=== PATIENT | female | born 1995 | race Hispanic/Latino ===

== ENCOUNTER → 2018-08-21 | Outpatient (CLI) | payer BC | END | disposition home or self-care (01) | LOC: RAH 13:11 | PROVIDERS: ATTEND Family Medicine | DX: R22.1 Localized swelling, mass and lump, neck (principal) | CPT/HCPCS: 76536 ==

== ENCOUNTER → 2019-10-08 | Outpatient (CLI) | payer BC | END | disposition home or self-care (01) | LOC: RAH 08:19 | PROVIDERS: ATTEND Family Medicine | DX: K76.0 Fatty (change of) liver, not elsewhere classified (principal); R11.2 Nausea with vomiting, unspecified | CPT/HCPCS: 76700 ==

== ENCOUNTER 2020-10-18 03:24 | Emergency (ER) | payer BC ==
[~2020-10-18] VITALS: Ht 165.1 cm; Wt 77.1 kg
[2020-10-18 03:45] VITALS: BP 123/91
[2020-10-18 04:10] VITALS: BP 123/80
[2020-10-18] MEDS ORDERED: SOLU-MEDROL 125MG VIAL IM ONE (04:30)
[2020-10-18 05:19] VITALS: BP 94/59
[2020-10-18] MEDS ORDERED: METH4TAB3 PO (05:21)
== END 2020-10-18 05:31 | disposition home or self-care (01) ==
LOC: EDH 03:24
DX: S29.012A Strain of muscle and tendon of back wall of thorax, initial encounter (principal); S16.1XXA Strain of muscle, fascia and tendon at neck level, initial encounter; Z79.52 Long term (current) use of systemic steroids; X58.XXXA Exposure to other specified factors, initial encounter; Y93.89 Activity, other specified; Y92.89 Other specified places as the place of occurrence of the external cause; Y99.8 Other external cause status
CPT/HCPCS: 71045; 96372; 99284; J2930; 96374